=== PATIENT | female | born 1970 | race Caucasian/White ===

== ENCOUNTER 2016-09-26 21:24 | Emergency (ER) | payer BC ==
[2016-09-26] MEDS ORDERED: Ondansetron HCl/PF 4 MG/2 ML Vial ONE (22:08)
[2016-09-26] MEDS ORDERED: Pantoprazole 40 MG VIAL ONE (22:08)
[2016-09-26 22:12] LABS: #Basophils 0.1 thou/uL (0.0-0.2); #Eosinphils 0.1 thou/uL (0.0-0.7); #Lymphocytes 2.1 thou/uL (1.20-3.40); #Monocytes 0.4 thou/uL (0.11-0.59); #Neutrophils 2.5 thou/uL (1.40-6.50); %Basophils 2.2 % (0.0-1.0); %Eosinophils 1.6 % (0.0-10.0); %Lymphocytes 40.6 % (21.0-51.0); %Monocytes 6.8 % (0.0-10.0); %Neutrophils 48.9 % (42.0-75.0); Hemoglobin 13.2 g/dL (12.0-16.0); Mean Corpuscular HGB CONC 34.4 g/dL (32.0-36.0); Mean Corpuscular Hemoglobin 32.1 pg (27.0-31.0); Mean Corpuscular Volume 93.3 fl (81.0-99.0); Mean Platelet Volume 9.2 fL (7.4-10.4); Platelet Count 201 thou/uL (130-400); RBC Distribution Width 11.6 % (11.5-14.5); Red Blood Cell (RBC) Count 4.12 mill/uL (4.20-5.40); White Blood Cell (WBC) Count 5.2 thou/uL (4.8-10.8)
--- NOTE | 2016-09-26 22:13 | RAD ---
AP VIEW CHEST 09/26/16 HISTORY: Abdominal pain for several hours. AP view chest is obtained on 09/26/16. Comparison made to previous exam from 02/02/12. AP view chest demonstrates the lungs to be well aerated. No evidence of active intrathoracic disease seen. No evidence of effusions, pneumonia, or pneumothorax seen. IMPRESSION: Unremarkable AP view chest. POS: [facility]
[2016-09-26 22:26] LABS: ALT (SGPT) 77 U/L (8-55); AST (SGOT) 26 U/L (5-34); Albumin 4.5 g/dL (3.5-5.0); Alkaline Phosphatase 69 U/L (40-150); Anion Gap 17 mmol/L (10-20); BUN (Urea Nitrogen) 15 mg/dL (7.0-18.7); Bilirubin, Total 0.5 mg/dL (0.2-1.2); Calc. Creatinine Clearance 0 mL/min (70-130); Calcium 9.2 mg/dL (7.8-10.44); Carbon Dioxide 24 mmol/L (22-29); Chloride 105 mmol/L (98-107); Estimated GFR-MDRD 69; Globulin 3.2 g/dL (2.4-3.5); Glucose 92 mg/dL (70-105); Potassium 3.9 mmol/L (3.5-5.1); Protein, Total 7.7 g/dL (6.0-8.3); Sodium 142 mmol/L (136-145)
[2016-09-26 22:30] LABS: CKMB 0.9 ng/mL (0-6.6); Troponin I Less than 0.010 ng/mL (< 0.028)
== END 2016-09-26 22:55 | disposition home or self-care (01) ==
LOC: BURERS 21:24
DX: K21.0 Gastro-esophageal reflux disease with esophagitis (principal); K57.92 Diverticulitis of intestine, part unspecified, without perforation or abscess without bleeding; K58.9 Irritable bowel syndrome, unspecified; E03.9 Hypothyroidism, unspecified; Z79.899 Other long term (current) drug therapy
CPT/HCPCS: 71010; 80053; 82553; 84484; 85025; 93005; 96374; 96375; C9113; J2405

== ENCOUNTER 2017-05-14 11:25 | Emergency (ER) | payer BC ==
[2017-05-14] MEDS ORDERED: Ondansetron HCl/PF 4 MG/2 ML Vial ONE (11:46)
[2017-05-14] MEDS ORDERED: Famotidine In NaCl 20 mg/50 ml Premix Bag ONE (11:46)
[2017-05-14 11:58] LABS: #Lymphocytes 1.1 thou/uL (1.20-3.40); #Monocytes 0.4 thou/uL (0.11-0.59); #Neutrophils 4.1 thou/uL (1.40-6.50); %Basophils 0.8 % (0.0-1.0); %Eosinophils 0.7 % (0.0-10.0); %Lymphocytes 18.9 % (21.0-51.0); %Monocytes 6.5 % (0.0-10.0); %Neutrophils 73.2 % (42.0-75.0); Hemoglobin 12.7 g/dL (12.0-16.0); Mean Corpuscular Hemoglobin 32.3 pg (27.0-31.0); Mean Corpuscular Volume 92.3 fl (81.0-99.0); Mean Platelet Volume 7.5 fL (7.4-10.4); Platelet Count 137 thou/uL (130-400); RBC Distribution Width 11.3 % (11.5-14.5); Red Blood Cell (RBC) Count 3.92 mill/uL (4.20-5.40); White Blood Cell (WBC) Count 5.7 thou/uL (4.8-10.8)
[2017-05-14 12:17] LABS: ALT (SGPT) 13 U/L (8-55); AST (SGOT) 14 U/L (5-34); Albumin 3.8 g/dL (3.5-5.0); Alkaline Phosphatase 56 U/L (40-150); Anion Gap 15 mmol/L (10-20); BUN (Urea Nitrogen) 11 mg/dL (7.0-18.7); Bilirubin, Total 0.3 mg/dL (0.2-1.2); Calc. Creatinine Clearance 0 mL/min (70-130); Calcium 8.4 mg/dL (7.8-10.44); Carbon Dioxide 23 mmol/L (22-29); Chloride 107 mmol/L (98-107); Estimated GFR-MDRD 80; Globulin 2.8 g/dL (2.4-3.5); Glucose 123 mg/dL (70-105); Lipase 22 U/L (8-78); Potassium 4.3 mmol/L (3.5-5.1); Protein, Total 6.6 g/dL (6.0-8.3); Sodium 141 mmol/L (136-145)
[2017-05-14 12:26] LABS: Bilirubin Negative (Negative); Blood, Urine Trace (Negative); Clarity Clear (Clear); Glucose, Urine (Dipstick) Negative (Negative); Leukocyte Negative (Negative); Nitrite Negative (Negative); Protein, Urine (Dipstick) Negative (Neg-Trace); Specific Gravity, Urine 1.015 (1.005-1.030); Urobilinogen 0.2 mg/dL (0.2-1.0); pH, Urine 8.5 (5.0-9.0)
[2017-05-14 12:28] LABS: Bacteria/HPF Rare-Few HPF (None Seen); Crystals/HPF RARE AMORPH PHOS HPF (Negative); RBC/HPF 0-3 HPF (0-3); Squamous Epithelial 0-3 HPF (0-3); WBC/HPF 0-3 HPF (0-3)
[2017-05-14 12:31] LABS: CKMB 0.6 ng/mL (0-6.6)
[2017-05-14 12:56] LABS: Troponin I Less than 0.010 ng/mL (< 0.028)
== END 2017-05-14 13:33 | disposition home or self-care (01) ==
LOC: BURERS 11:25
DX: I95.1 Orthostatic hypotension (principal); E03.9 Hypothyroidism, unspecified; K58.9 Irritable bowel syndrome, unspecified; M86.9 Osteomyelitis, unspecified; Z79.899 Other long term (current) drug therapy
CPT/HCPCS: 36415; 80053; 81003; 81015; 82553; 83690; 84443; 84484; 85025; 87804; 93005; 94760; 96361; 96365; 96375; J2405

== ENCOUNTER 2019-11-05 16:53 | Emergency (ER) | payer BC ==
[~2019-11-05 16:53] MED LIST: Iopamidol 370 76% 100 ML VIAL ONE
[2019-11-05] MEDS ORDERED: Famotidine 20 MG TAB ONE (17:26)
[2019-11-05] MEDS ORDERED: Lidocaine Viscous Sol 2% 15 ml UD Cup ONE ×2 (17:26→18:40)
[2019-11-05] MEDS ORDERED: Pantoprazole 40 MG VIAL ONE (17:26)
[2019-11-05] MEDS ORDERED: Milk Of Magnesia 30 ML UDCUP ONE (17:26)
[2019-11-05 17:48] LABS: #Lymphocytes 1.6 thou/uL (1.20-3.40); #Monocytes 0.3 thou/uL (0.11-0.59); #Neutrophils 2.7 thou/uL (1.40-6.50); %Basophils 0.8 % (0.0-1.0); %Eosinophils 1.1 % (0.0-10.0); %Lymphocytes 34.4 % (21.0-51.0); %Monocytes 6.5 % (0.0-10.0); %Neutrophils 57.2 % (42.0-75.0); Hemoglobin 11.4 g/dL (12.0-16.0); Mean Corpuscular HGB CONC 30.6 g/dL (32.0-36.0); Mean Corpuscular Hemoglobin 30.8 pg (27.0-31.0); Mean Platelet Volume 8.1 fL (7.4-10.4); Platelet Count 140 thou/uL (130-400); RBC Distribution Width 11.9 % (11.5-14.5); Red Blood Cell (RBC) Count 3.69 mill/uL (4.20-5.40); White Blood Cell (WBC) Count 4.7 thou/uL (4.8-10.8)
[2019-11-05 17:57] LABS: Bilirubin Negative (Negative); Blood, Urine Negative (Negative); Clarity Clear (Clear); Glucose, Urine (Dipstick) Negative (Negative); Leukocyte Trace (Negative); Nitrite Negative (Negative); Protein, Urine (Dipstick) Negative (Neg-Trace); Urobilinogen 0.2 mg/dL (Less than 2)
[2019-11-05 18:00] LABS: Bacteria/HPF 1+ HPF (None Seen); Mucous/LPF 1+ LPF (<2+); Oval Fat Bodies/HPF None Seen HPF (None Seen); RBC/HPF 0-3 HPF (0-3); Renal Epithelial None Seen HPF (None Seen); Sperm/HPF None Seen HPF (None Seen); Transitional Epithelial None Seen HPF (None Seen); Trichomonas/HPF None Seen HPF (None Seen); WBC/HPF 0-3 HPF (0-3); Yeast-Budding None Seen HPF (None Seen); Yeast-Hyphae None Seen HPF (None Seen)
[2019-11-05 18:01] LABS: Broad Cast None Seen LPF (None Seen); Calcium Oxalate Crystals None Seen HPF (None Seen); Cellular Cast None Seen LPF (None Seen); Epithelial Cast None Seen LPF (None Seen); Fatty Cast None Seen LPF (None Seen); Other Casts None Seen LPF (None Seen); Red Blood Cell Cast None Seen LPF (None Seen); Triple Phosphate Crystal None Seen HPF (None Seen); Unclassified Crystals None Seen HPF (None Seen); Waxy Cast None Seen LPF (None Seen); White Blood Cell Cast None Seen LPF (None Seen)
[2019-11-05 18:03] LABS: ALT (SGPT) 16 U/L (8-55); AST (SGOT) 13 U/L (5-34); Albumin 4.2 g/dL (3.5-5.0); Alkaline Phosphatase 61 U/L (40-110); Anion Gap 13 mmol/L (10-20); BUN (Urea Nitrogen) 12 mg/dL (7.0-18.7); Bilirubin, Total 0.4 mg/dL (0.2-1.2); Calc. Creatinine Clearance 0 mL/min (70-130); Calcium 8.8 mg/dL (7.8-10.44); Carbon Dioxide 29 mmol/L (22-29); Chloride 105 mmol/L (98-107); Estimated GFR-MDRD 74; Globulin 2.6 g/dL (2.4-3.5); Glucose 105 mg/dL (70-105); Lipase 28 U/L (8-78); Potassium 4.1 mmol/L (3.5-5.1); Protein, Total 6.8 g/dL (6.0-8.3); Sodium 143 mmol/L (136-145)
[2019-11-05] MEDS ORDERED: Fentanyl 100 MCG/2 ML VIAL ONE (18:20)
[2019-11-05] MEDS ORDERED: Lorazepam 2 MG/ML VIAL ONE (18:20)
[2019-11-05] MEDS ORDERED: Piperacillin/Tazobactam 4.5 GM VIAL ONE (18:20)
--- NOTE | 2019-11-05 18:35 | CT ---
CT ABDOMEN AND PELVIS WITH CONTRAST: 11/05/19 Comparison is made with a prior scan of 03/12/19. The major finding on this study is a mildly distended stomach with a large amount of fluid in it and mildly dilated fluid filled small bowel down to the mid to distal small bowel region. The terminal il eum assumes a normal size and the colon is not dilated, thus there is a transitional point present. A n additional finding is colonic diverticulosis, worst in the sigmoid region. There is one area around the sigmoid colon that is slightly hazy in the adjacent fat and more so than it was on the lisa dy. Minimal diverticulitis in this location is conceivable. I do not see any free air or free fluid i n the abdomen or pelvis of this patient. Elsewhere, the lung bases are clear. The liver, spleen, pancreas, gallbladder, adrenal glands, kidney s and abdominal aorta were unremarkable in appearance. The celiac artery and mesenteric vessels fill normally. CT of the pelvis was remarkable only for the findings already listed above. There was on free fluid o r mass appreciated. IMPRESSION: 1. Findings suspicious for at least a partial small bowel obstruction in the mid to distal small bowel. There is a transition point in size of small bowel just prior to the terminal ileum. 2. Colonic diverticulosis. Possible mild diverticulitis in the sigmoid region. Findings discussed with Dr. Mendez at 1810 on 11/05/19. POS: HOME
--- NOTE | 2019-11-06 06:24 | RAD ---
AP PORTABLE CHEST: 11/05/2019 1706 HOURS COMPARISON: Study from 12/04/2016 done at the [facility]. FINDINGS: The heart is normal in size. No acute infiltrate or effusion is seen. The mediastinum appears normal. IMPRESSION: No acute thoracic finding. POS: HOME
== END 2019-11-05 19:15 | disposition short-term general hospital (02) ==
LOC: BURERS 16:53
DX: K56.600 Partial intestinal obstruction, unspecified as to cause (principal); E03.9 Hypothyroidism, unspecified; Z79.899 Other long term (current) drug therapy
CPT/HCPCS: 71045; 74177; 80053; 81003; 81015; 83690; 85025; 93005; 96365; 96375; C9113; J2060; J2543; J3010; Q9967

== ENCOUNTER 2020-07-13 08:29 | Emergency (ER) | payer BC, SELFPAY ==
[2020-07-13] MEDS ORDERED: Ondansetron PF 4 MG/2 ML Vial ONE (09:39)
[2020-07-13 10:17] LABS: ALT (SGPT) 28 U/L (8-55); AST (SGOT) 21 U/L (5-34); Albumin 4.3 g/dL (3.5-5.0); Alkaline Phosphatase 58 U/L (40-110); Anion Gap 17 mmol/L (10-20); BUN (Urea Nitrogen) 19 mg/dL (9.8-20.1); Bilirubin, Total 0.8 mg/dL (0.2-1.2); Calc. Creatinine Clearance 0 mL/min (70-130); Calcium 8.9 mg/dL (7.8-10.44); Carbon Dioxide 24 mmol/L (22-29); Chloride 104 mmol/L (98-107); Globulin 2.8 g/dL (2.4-3.5); Glucose 117 mg/dL (70-105); Lipase 15 U/L (8-78); Potassium 3.8 mmol/L (3.5-5.1); Protein, Total 7.1 g/dL (6.0-8.3); Sodium 141 mmol/L (136-145)
[2020-07-13 10:28] LABS: Band 1 % (5-11); Hemoglobin 12.7 g/dL (12.0-16.0); Lymphocytes 4 % (21-51); MDiff Complete? YES; Mean Corpuscular HGB CONC 33.1 g/dL (32.0-36.0); Mean Corpuscular Hemoglobin 31.6 pg (27.0-31.0); Mean Corpuscular Volume 95.5 fL (78.0-98.0); Mean Platelet Volume 9.3 fL (7.4-10.4); Monocytes 2 % (0-10); Neutrophil 93 % (42-75); Platelet Count 120 thou/uL (130-400); Platelet Morphology Comment Appears Adequate; RBC Distribution Width 11.7 % (11.5-14.5); Red Blood Cell (RBC) Count 4.03 mill/uL (4.20-5.40); White Blood Cell (WBC) Count 5.1 thou/uL (4.8-10.8)
[2020-07-13] MEDS ORDERED: Iopamidol 370 76% 100 ML VIAL ONE (16:28)
== END 2020-07-13 11:40 | disposition home or self-care (01) ==
LOC: BURERS 08:29
DX: A08.4 Viral intestinal infection, unspecified (principal); Z20.822 Contact with and (suspected) exposure to COVID-19; E78.5 Hyperlipidemia, unspecified; E78.00 Pure hypercholesterolemia, unspecified; K58.9 Irritable bowel syndrome, unspecified; E03.9 Hypothyroidism, unspecified; Z79.899 Other long term (current) drug therapy
CPT/HCPCS: 36415; 74177; 80053; 83690; 85025; 94760; 96361; 96374; J2405; Q9967

== ENCOUNTER 2020-12-31 02:57 | Emergency (ER) | payer BC ==
[2020-12-31] MEDS ORDERED: predniSONE 20 MG TAB ONE (04:26)
[2020-12-31] MEDS ORDERED: Albuterol Sulfate 1.25 MG/3 ML NEB ONE (04:27)
[2020-12-31] MEDS ORDERED: Benzonatate 100 MG CAP ONE (04:28)
[2020-12-31] MEDS ORDERED: Albuterol Sulfate 2.5 mg/0.5 ml Neb ONE (04:57)
[2020-12-31] MEDS ORDERED: Lidocaine 2% 20 ml MDV ONE (05:01)
== END 2020-12-31 06:20 | disposition home or self-care (01) ==
LOC: BURERS 02:57
DX: J06.9 Acute upper respiratory infection, unspecified (principal); E78.5 Hyperlipidemia, unspecified; E78.00 Pure hypercholesterolemia, unspecified; E03.9 Hypothyroidism, unspecified; Z79.899 Other long term (current) drug therapy
CPT/HCPCS: 71045; J7512; J7611; J7612

== ENCOUNTER 2021-05-06 09:30 | Emergency (ER) | payer BC, SELFPAY ==
[2021-05-06] MEDS ORDERED: Ketorolac Tromethamine 30 MG/ML VIAL ONE (10:06)
[2021-05-06] MEDS ORDERED: Acetaminophen 500 MG TAB ONE (10:06)
[2021-05-06 10:33] LABS: #Monocytes 0.4 thou/uL (0.11-0.59); #Neutrophils 4.7 thou/uL (1.40-6.50); %Basophils 0.7 % (0.0-1.0); %Eosinophils 0.3 % (0.0-10.0); %Lymphocytes 15.6 % (21.0-51.0); %Monocytes 6.6 % (0.0-10.0); %Neutrophils 76.9 % (42.0-75.0); Hemoglobin 11.6 g/dL (12.0-16.0); Mean Corpuscular Hemoglobin 32.2 pg (27.0-31.0); Mean Platelet Volume 7.2 fL (7.4-10.4); Platelet Count 135 thou/uL (130-400); RBC Distribution Width 11.4 % (11.5-14.5); Red Blood Cell (RBC) Count 3.59 mill/uL (4.20-5.40); White Blood Cell (WBC) Count 6.1 thou/uL (4.8-10.8)
[2021-05-06 10:41] LABS: ALT (SGPT) 20 U/L (8-55); AST (SGOT) 14 U/L (5-34); Albumin 3.8 g/dL (3.5-5.0); Alkaline Phosphatase 82 U/L (40-110); Anion Gap 15 mmol/L (10-20); BUN (Urea Nitrogen) 11 mg/dL (9.8-20.1); Bilirubin, Total 0.3 mg/dL (0.2-1.2); Calc. Creatinine Clearance 0 mL/min (70-130); Calcium 8.6 mg/dL (7.8-10.44); Carbon Dioxide 28 mmol/L (22-29); Chloride 102 mmol/L (98-107); Globulin 2.5 g/dL (2.4-3.5); Glucose 105 mg/dL (70-105); Potassium 3.5 mmol/L (3.5-5.1); Protein, Total 6.3 g/dL (6.0-8.3); Sodium 141 mmol/L (136-145)
== END 2021-05-06 11:28 | disposition home or self-care (01) ==
LOC: BURERS 09:30
DX: B34.9 Viral infection, unspecified (principal); Z20.822 Contact with and (suspected) exposure to COVID-19; E78.5 Hyperlipidemia, unspecified; E78.00 Pure hypercholesterolemia, unspecified; E03.9 Hypothyroidism, unspecified
CPT/HCPCS: 36415; 71045; 80053; 83605; 85025; 87040; 96374; J1885

== ENCOUNTER 2021-06-02 09:06 | Emergency (ER) | payer BC | END 2021-06-02 09:31 | disposition left against medical advice (07) | LOC: BURERS 09:06 | DX: Z53.21 Procedure and treatment not carried out due to patient leaving prior to being seen by health care provider (principal) ==

== ENCOUNTER 2021-06-03 23:12 | Emergency (ER) | payer BC ==
[2021-06-03] MEDS ORDERED: Metoclopramide HCl 10 MG TAB ONE (23:54)
[2021-06-03] MEDS ORDERED: diphenhydrAMINE 25 MG CAP ONE (23:54)
== END 2021-06-04 00:10 | disposition home or self-care (01) ==
LOC: BURERS 23:12
DX: U07.1 COVID-19 (principal); R11.2 Nausea with vomiting, unspecified; E86.0 Dehydration; E03.9 Hypothyroidism, unspecified; Z79.899 Other long term (current) drug therapy
CPT/HCPCS: 99283

== ENCOUNTER 2021-06-06 09:36 | Emergency (ER) | payer BC ==
[2021-06-06 10:48] LABS: #Lymphocytes 0.6 thou/uL (1.20-3.40); #Monocytes 0.3 thou/uL (0.11-0.59); #Neutrophils 2.1 thou/uL (1.40-6.50); %Basophils 0.8 % (0.0-1.0); %Lymphocytes 19.7 % (21.0-51.0); %Monocytes 8.8 % (0.0-10.0); %Neutrophils 70.7 % (42.0-75.0); Hemoglobin 12.5 g/dL (12.0-16.0); Mean Corpuscular HGB CONC 33.3 g/dL (32.0-36.0); Mean Corpuscular Hemoglobin 30.5 pg (27.0-31.0); Mean Corpuscular Volume 91.7 fL (78.0-98.0); Mean Platelet Volume 6.9 fL (7.4-10.4); Platelet Count 113 thou/uL (130-400); RBC Distribution Width 12.1 % (11.5-14.5); Red Blood Cell (RBC) Count 4.11 mill/uL (4.20-5.40)
[2021-06-06 10:53] LABS: ALT (SGPT) 25 U/L (8-55); AST (SGOT) 24 U/L (5-34); Albumin 3.8 g/dL (3.5-5.0); Alkaline Phosphatase 48 U/L (40-110); Anion Gap 15 mmol/L (10-20); BUN (Urea Nitrogen) 7 mg/dL (9.8-20.1); Bilirubin, Total 0.8 mg/dL (0.2-1.2); Calc. Creatinine Clearance 0 mL/min (70-130); Carbon Dioxide 32 mmol/L (22-29); Chloride 98 mmol/L (98-107); Globulin 2.6 g/dL (2.4-3.5); Glucose 125 mg/dL (70-105); Potassium 3.6 mmol/L (3.5-5.1); Protein, Total 6.4 g/dL (6.0-8.3); Sodium 141 mmol/L (136-145)
[2021-06-06 10:56] LABS: Platelet Morphology Comment Appears Decreased; RBC Morphology Normal
[2021-06-06 10:58] LABS: Calcium 8.5 mg/dL (7.8-10.44)
[2021-06-06 11:07] LABS: Bilirubin Small (Negative); Blood, Urine Negative (Negative); Clarity Cloudy (Clear); Glucose, Urine (Dipstick) 100 mg/dL (Negative); Ketone, Urine Negative (Negative); Leukocyte Negative (Negative); Nitrite Negative (Negative); Protein, Urine (Dipstick) 30 mg/dL (Neg-Trace); Specific Gravity, Urine 1.015 (1.005-1.030); Urobilinogen > or = 8.0 mg/dL (Less than 2)
[2021-06-06 11:13] LABS: Pregnancy Test - Urine (BHCG) POSITIVE (Negative)
[2021-06-06 11:15] LABS: Pregu Control Background? CLEAR/WHITE (CLR/WHITE); Pregu Control Bar Appear? YES (CONTROL BAR); Specific Gravity 1.015 (1.002-1.036)
[2021-06-06 11:18] LABS: Bacteria/HPF 2+ HPF (None Seen); Mucous/LPF 2+ LPF (<2+); RBC/HPF 0-3 HPF (0-3); Squamous Epithelial 0-3 HPF (0-3); WBC/HPF 0-3 HPF (0-3)
== END 2021-06-06 13:13 | disposition home or self-care (01) ==
LOC: BURERS 09:36
DX: U07.1 COVID-19 (principal); E86.0 Dehydration; E03.9 Hypothyroidism, unspecified; Z87.19 Personal history of other diseases of the digestive system
CPT/HCPCS: 36415; 71045; 80053; 81003; 81015; 81025; 83605; 83880; 84702; 85025; 93005

== ENCOUNTER 2021-07-25 09:28 | Outpatient (CLI) | payer BC | END 2021-07-25 09:29 | disposition home or self-care (01) | LOC: BURRAD 09:28 | PROVIDERS: ATTEND Family Medicine | DX: M25.511 Pain in right shoulder (principal) ==

== ENCOUNTER 2021-10-06 21:16 | Emergency (ER) | payer BC ==
[2021-10-06] MEDS ORDERED: predniSONE 20 MG TAB ONE (21:44)
== END 2021-10-06 21:50 | disposition home or self-care (01) ==
LOC: BURERS 21:16
DX: J20.9 Acute bronchitis, unspecified (principal)
CPT/HCPCS: 99283; J7512

== ENCOUNTER 2021-12-28 10:08 | Emergency (ER) | payer BC ==
[2021-12-28] MEDS ORDERED: Ketorolac Tromethamine 30 MG/ML VIAL ONE (10:35)
== END 2021-12-28 11:43 | disposition home or self-care (01) ==
LOC: BURERS 10:08
DX: M25.552 Pain in left hip (principal); M54.16 Radiculopathy, lumbar region; E03.9 Hypothyroidism, unspecified
CPT/HCPCS: 96372; J1885

== ENCOUNTER 2022-01-03 19:15 | Emergency (ER) | payer BC ==
[2022-01-03] MEDS ORDERED: Ketorolac Tromethamine 30 MG/ML VIAL ONE (20:26)
[2022-01-03] MEDS ORDERED: predniSONE 20 MG TAB ONE (20:54)
== END 2022-01-03 21:09 | disposition home or self-care (01) ==
LOC: BURERS 19:15
DX: M25.552 Pain in left hip (principal); E03.9 Hypothyroidism, unspecified
CPT/HCPCS: 96372; 99283; J1885; J7512

== ENCOUNTER 2022-01-23 16:19 | Outpatient (CLI) | payer BC | END 2022-01-23 16:20 | disposition home or self-care (01) | LOC: BURRAD 16:19 | PROVIDERS: ATTEND Family Medicine | DX: J42 Unspecified chronic bronchitis (principal) | CPT/HCPCS: 71046 ==

== ENCOUNTER 2022-08-05 19:56 | Emergency (ER) | payer BC ==
[2022-08-05] MEDS ORDERED: Erythromycin Base 0.5% Ophth Oint 3.5 gm Tube ONE (20:27)
[2022-08-05] MEDS ORDERED: Clindamycin 150 MG CAP ONE (20:27)
== END 2022-08-05 20:55 | disposition home or self-care (01) ==
LOC: BURERS 19:56
DX: L01.00 Impetigo, unspecified (principal); E78.5 Hyperlipidemia, unspecified; Z79.899 Other long term (current) drug therapy
CPT/HCPCS: 99283